=== PATIENT | male | born 1970 | race Caucasian/White ===

== ENCOUNTER 2017-10-07 08:57 | Emergency (ER) | payer OTHER ==
[~2017-10-07] VITALS: Ht 188 cm; Wt 105.0 kg
[~2017-10-07 08:57] MED LIST: ADVI200C9 PO
[2017-10-07 08:59] VITALS: BP 148/79; PULSE 94; RESP 16; TEMP 99.6; O2SAT 96
[2017-10-07] MEDS ORDERED: EYE DROP (09:26)
[2017-10-07] MEDS ORDERED: CHOLESTERAL MED (09:26)
[2017-10-07] MEDS ORDERED: IBUP1TAB7 PO (10:02)
[2017-10-07] MEDS ORDERED: BENZ100 PO (10:02)
--- NOTE | 2017-10-07 10:03 | PD ---
HPI Chief Complaint: Cold / Flu Symptoms Time Seen by Provider: 09:13 Travel History International Travel<30 days: No Contact w/Intl Traveler<30days: No Traveled to known affect area: No History of Present Illness HPI 47 year old male with history of hypertension, dyslipidemia presents to emergency room with complaint of body aches, chills, cough times one day. He reports his daughter had similar symptoms last week. Her symptoms resolved without medical treatment. He denies foreign travel. He denies headache, chest pain, shortness of breath, abdominal pain. Symptom severity is moderate. No aggravating or alleviating factors. PFSH Past Medical History Hx Anticoagulant Therapy: No Cancer: No Cardiovascular Problems: Yes (CHOL) Diabetes: No Glaucoma: Yes (RIGHT EYE, VISUAL IMPAIRMENT) Hepatitis: No Hiatal Hernia: No Hypertension: Yes Kidney Stones: Yes (LITHOTRIPSY) Medical other: Yes (MEDIAL MENISCUS TEAR LEFT KNEE) Thyroid Disease: No Tetanus Vaccination: > 5 Years Influenza Vaccination: No Past Surgical History Eye Surgery: Yes (RIGHT EYE CATARACT REMOVAL, EYE TRACKING) Pacemaker: No Other Surgery: Yes (L KNEE SCOPE) Social History Alcohol Use: Yes (OCCASIONALLY) Tobacco Use: Yes (1 PACK DAILY) Allergies-Medications (Allergen,Severity, Reaction): Coded Allergies: No Known Allergies (Verified Adverse Reaction, Unknown, 10/07/17) Reported Meds & Prescriptions Reported Meds & Active Scripts Active Reported [Eye Drop] [Cholesteral Med] Review of Systems Except as stated in HPI: all other systems reviewed are Neg General / Constitutional: Positive: Chills Eyes: No: Visual changes HENT: No: Headaches Cardiovascular: No: Chest Pain or Discomfort Respiratory: Positive: Cough Gastrointestinal: No: Abdominal Pain Genitourinary: No: Dysuria Musculoskeletal: Positive: Myalgias Skin: No Rash Neurologic: No: Weakness Physical Exam Narrative GENERAL: Alert well-appearing male. SKIN: Warm and dry. No rash HEAD: Normocephalic. EYES: Pupils equal, round, reactive. No injection or drainage. THROAT: No pharyngeal erythema. NECK: Supple, trachea midline. No JVD or lymphadenopathy. No meningismus. CARDIOVASCULAR: Regular rate and rhythm without murmurs, gallops, or rubs. RESPIRATORY: Breath sounds equal bilaterally. No accessory muscle use. GASTROINTESTINAL: Abdomen soft, non-tender, nondistended. MUSCULOSKELETAL: No cyanosis, or edema. BACK: Nontender without obvious deformity. No CVA tenderness. Data Data Last Documented VS Vital Signs Date Time Temp Pulse Resp B/P (MAP) Pulse Ox O2 Delivery O2 Flow Rate FiO2 10/07/17 08:59 99.6 94 16 148/79 (102) 96 Orders Orders Influenzae A/B Antigen (10/07/17 09:17) MDM Medical Decision Making Medical Screen Exam Complete: Yes Emergency Medical Condition: Yes Differential Diagnosis Influenza, viral URI, bronchitis, pneumonia Narrative Course 47-year-old male with mild flulike symptoms since this morning. He reports family member had similar symptoms which resolved spontaneously on their own. He is well-appearing. Nontoxic. His vital signs are stable. His flu swab was negative. Symptomatically treatment was discussed with patient. Patient verbalizes understanding and agrees to plan Diagnosis Primary Impression: Viral illness Referrals: Primary Care Physician Additional Instructions: Stay well hydrated by drinking plenty of fluids. Rest. Take [id number] Tylenol as needed for pain and fever. Take ibuprofen 800 mg every 6 hours as needed for pain and fever. Follow-up with her primary doctor or return if he developed new or worsening symptoms. Scripts Benzonatate (Tessalon Perles) 100 Mg Cap 200 MG PO TID Y for COUGH for 5 Days, CAP 0 Refills Prov: Marycarmen Meeks 10/07/17 Ibuprofen (Ibuprofen) 800 Mg Tab 800 MG PO Q6HR Y for PAIN, #40 TAB 0 Refills Prov: Marycarmen Meeks 10/07/17 Disposition: 01 DISCHARGE HOME Condition: Stable Marycarmen Meeks Oct 07, 2017 10:02
== END 2017-10-07 10:40 | disposition home or self-care (01) ==
LOC: PHED 08:57
DX: B34.9 Viral infection, unspecified (principal); H40.9 Unspecified glaucoma; I10 Essential (primary) hypertension; E78.5 Hyperlipidemia, unspecified; F17.200 Nicotine dependence, unspecified, uncomplicated; Z87.442 Personal history of urinary calculi
CPT/HCPCS: 87804; 99283